=== PATIENT | female | born 1930 | race Caucasian/White ===

== ENCOUNTER → 2016-07-14 | Outpatient (CLI) | payer OTHER, MEDICARE ==
[~2016-07-14] MED LIST: ALBU1AER9 INH; ASPI81TA85 PO; ATOR-54 PO; CAPS0.022 TOP; CARV3.122 PO; CHOL1000 PO; ENOX100I SQ; FOLI1TAB8 PO; FURO40TA3 PO; GABA-112 PO; IRBE1TAB46 PO; LOPELIQ6 PO; METF-382 PO; METFTAB2 PO; PANT40TA PO; PRT/20 PO; PSYL55.43 PO; SPR25 PO; THIA100T11 PO; VNTHFA/IN INH; WARF2TAB PO; [UNRECOGNIZED DRUG - CODE] PO
[2016-07-14 09:58] LABS: PROTHROMBIN TIME (PATIENT) 42.8 SECONDS (9.0-12.0)
[2016-07-14 10:02] LABS: INR 3.8 (0.9-1.1)
== END | disposition home or self-care (01) ==
LOC: C.LABFOXMH 09:21
PROVIDERS: ATTEND Internal Medicine
DX: Z79.01 Long term (current) use of anticoagulants (principal)

== ENCOUNTER → 2016-07-29 | Outpatient (CLI) | payer OTHER, MEDICARE ==
[~2016-07-29] MED LIST changes: -CAPS0.022 TOP; -ENOX100I SQ; -FOLI1TAB8 PO; -METFTAB2 PO; -PANT40TA PO; -THIA100T11 PO; -VNTHFA/IN INH; -[UNRECOGNIZED DRUG - CODE] PO
[2016-07-29 10:12] LABS: INR 2.5 (0.9-1.1)
== END ==
LOC: C.LABFOXMH 09:37
PROVIDERS: ATTEND Internal Medicine
DX: Z79.01 Long term (current) use of anticoagulants (principal)

== ENCOUNTER → 2016-08-11 | Outpatient (CLI) | payer OTHER, MEDICARE ==
[2016-08-11 08:52] LABS: INR 2.1 (0.9-1.1); PROTHROMBIN TIME (PATIENT) 23.6 SECONDS (9.0-12.0)
== END | disposition home or self-care (01) ==
LOC: C.LABFOXMH 08:21
PROVIDERS: ATTEND Internal Medicine
DX: Z51.81 Encounter for therapeutic drug level monitoring (principal); Z79.01 Long term (current) use of anticoagulants

== ENCOUNTER → 2016-08-17 | Outpatient (CLI) | payer OTHER, MEDICARE ==
[2016-08-17 10:17] LABS: ESTIMATED AVERAGE GLUCOSE 151 mg/dl; HA1C FLAG Normal (Normal)
[2016-08-17 10:23] LABS: BLOOD UREA NITROGEN 25 mg/dl (7-18); BUN/CREATININE RATIO 19.2 (10-20); CALCIUM 9.5 mg/dl (8.5-10.1); CARBON DIOXIDE 24 mmol/L (21-32); CHLORIDE 107 mmol/L (98-107); GLUCOSE 132 mg/dl (70-99); POTASSIUM 4.5 mmol/L (3.5-5.1); SODIUM 141 mmol/L (136-145)
== END | disposition home or self-care (01) ==
LOC: C.LABFOXMH 09:31
PROVIDERS: ATTEND Internal Medicine
DX: E11.9 Type 2 diabetes mellitus without complications (principal)

== ENCOUNTER → 2016-09-01 | Outpatient (CLI) | payer OTHER, MEDICARE ==
[2016-09-01 09:02] LABS: INR 2.4 (0.9-1.1); PROTHROMBIN TIME (PATIENT) 26.2 SECONDS (9.0-12.0)
== END | disposition home or self-care (01) ==
LOC: C.LABFOXMH 08:39
PROVIDERS: ATTEND Internal Medicine
DX: Z79.01 Long term (current) use of anticoagulants (principal)

== ENCOUNTER → 2016-09-23 | Outpatient (CLI) | payer OTHER, MEDICARE ==
--- NOTE | 2016-09-23 14:25 | MAMMOGRAPHY REPORT ---
BILATERAL DIGITAL SCREENING MAMMOGRAM WITH CAD: 09/23/2016 CLINICAL HISTORY: Asymptomatic. Personal history of breast cancer. TECHNIQUE: Bilateral CC and MLO views were obtained. Current study was also evaluated with a Comput er Aided Detection (CAD) system. COMPARISON: Comparison is made to exams dated: 09/12/2015 mammogram, 08/20/2014 mammogram, 08/17/2013 job mogram, 08/29/2014 mammogram, 08/10/2012 mammogram, and 01/14/2012 mammogram - [facility] [address] BREAST COMPOSITION: There are scattered areas of fibroglandular density in both breasts. FINDINGS: There is expected architectural distortion, skin irregularity and fat necrosis in the 12:0 0 right breast, in the area of prior surgery. Within an ovoid lucent area within the 12:00 right br east, there is an increasingly prominent 9 mm dense rounded mass. Although this may simply represen t part of evolution of fat necrosis, definitive characterization with spot compression tomosynthesis views and possibly ultrasound is recommended. There are scattered benign coarse calcifications in the right breast, and some in the left breast as well. No other suspicious mass, architectural distortion or cluster of microcalcifications is seen . IMPRESSION: ACR BI-RADS CATEGORY 0: INCOMPLETE EVALUATION: NEED ADDITIONAL IMAGING EVALUATION The increasingly prominent 9 mm dense rounded mass in the 12:00 right breast needs additional evalua tion. The patient will be called to schedule an appointment. Approximately 10% of breast cancers are not detected with mammography. A negative mammographic repor t should not delay biopsy if a clinically suggestive mass is present. Louise Magallanes M.D. ay/:09/23/2016 13:00:08 Attending Technologist: Rachael Chase, [facility] [employer] Supervisor: Fawn Sánchez RT(R)(M), [facility] letter sent: Addl Imaging 0 BI-RADS Code: ACR BI-RADS Category 0: Incomplete Evaluation: Need Additional Imaging Evaluation
== END | disposition home or self-care (01) ==
LOC: C.MAMM 09:46
PROVIDERS: ATTEND Internal Medicine
DX: Z12.31 Encounter for screening mammogram for malignant neoplasm of breast (principal); N63 Unspecified lump in breast

== ENCOUNTER → 2016-09-29 | Outpatient (CLI) | payer OTHER, MEDICARE ==
[2016-09-29 09:33] LABS: INR 2.3 (0.9-1.1); PROTHROMBIN TIME (PATIENT) 25.2 SECONDS (9.0-12.0)
== END | disposition home or self-care (01) ==
LOC: C.LABFOXMH 08:52
PROVIDERS: ATTEND Internal Medicine
DX: Z51.81 Encounter for therapeutic drug level monitoring (principal); Z79.01 Long term (current) use of anticoagulants

== ENCOUNTER → 2016-10-01 | Outpatient (CLI) | payer OTHER, MEDICARE ==
--- NOTE | 2016-10-01 12:48 | MAMMOGRAPHY REPORT ---
UNILATERAL RIGHT DIGITAL DIAGNOSTIC MAMMOGRAM TOMOSYNTHESIS AND TARGETED RIGHT ULTRASOUND: 10/01/2016 CLINICAL HISTORY: Callback from screening mammogram for right breast mass. TECHNIQUE: Breast tomosynthesis in addition to standard 2D mammography was performed. Spot shawn nataly right CC and MLO 2-D and tomosynthesis images were obtained. COMPARISON: Comparison is made to exams dated: 09/23/2016 mammogram, 09/12/2015 mammogram, 08/20/2014 ma mmogram, 08/29/2014 mammogram, 08/17/2013 mammogram, and 08/10/2012 mammogram - [facility] nter. BREAST COMPOSITION: There are scattered areas of fibroglandular density in the right breast. FINDINGS: Spot compression views of the right breast demonstrate an oval 2.4 cm fat density mass at the lumpectomy bed in the right 12:00 breast, consistent with benign fat necrosis. Within the fat density mass is a circumscribed oval gently lobulated 9 mm mass, for which ultrasound was performed. Benign dystrophic calcifications are also noted at the lumpectomy bed. Targeted ultrasound was performed of the right 12:00 breast at the lumpectomy bed. The ultrasound i s somewhat limited of this region due to dense shadowing in the region of the lumpectomy bed. There is a round nearly anechoic mass seen in the right breast at 12:00, which corresponds with the fat d ensity mass mammographically and is consistent with benign fat necrosis. Within the fat density mas s there is a partially visualized isoechoic nodule which measures 4 x 5 mm, only seen in the antirad ial projection. This corresponds with the nodule seen mammographically and is probably benign and l ikely also represents fat necrosis given that it is isoechoic and located within the fat density mas s. IMPRESSION: ACR-BI-RADS CATEGORY 3: PROBABLY BENIGN, TARGETED ULTRASOUND ACR-BI-RADS CATEGORY 3: MA OBABLY BENIGN Isoechoic 9 mm mass within an area of fat necrosis at the lumpectomy bed in the right 12:00 breast. The mass is probably benign and likely also represents fat necrosis. Recommend follow-up diagnosti c tomosynthesis mammograms and possible ultrasound of the right breast in 6 months to reevaluate. The patient has been verbally notified of the results. Approximately 10% of breast cancers are not detected with mammography. A negative mammographic repor t should not delay biopsy if a clinically suggestive mass is present. Tessie Neumann M.D. ah/:10/01/2016 11:43:12 Personnel Coordinator: Rachael GARCÍA(Danuta)(M), [facility] letter sent: Follow Up Recommended 3 BI-RADS Code: ACR-BI-RADS Category 3: Probably Benign Ultrasound BI-RADS: ACR-BI-RADS Category 3: P robably Benign
== END | disposition home or self-care (01) ==
LOC: C.MAMM 10:57
PROVIDERS: ATTEND Internal Medicine
DX: N63 Unspecified lump in breast (principal)

== ENCOUNTER → 2016-10-27 | Outpatient (CLI) | payer OTHER, MEDICARE ==
[2016-10-27 09:39] LABS: INR 1.7 (0.9-1.1); PROTHROMBIN TIME (PATIENT) 18.2 SECONDS (9.0-12.0)
== END | disposition home or self-care (01) ==
LOC: C.LABFOXMH 08:53
PROVIDERS: ATTEND Internal Medicine
DX: Z51.81 Encounter for therapeutic drug level monitoring (principal); Z79.01 Long term (current) use of anticoagulants

== ENCOUNTER → 2016-11-17 | Outpatient (CLI) | payer OTHER, MEDICARE ==
[2016-11-17 10:08] LABS: INR 2.4 (0.9-1.1); PROTHROMBIN TIME (PATIENT) 26.1 SECONDS (9.0-12.0)
== END | disposition home or self-care (01) ==
LOC: C.LABFOXMH 09:43
PROVIDERS: ATTEND Internal Medicine
DX: Z79.01 Long term (current) use of anticoagulants (principal)

== ENCOUNTER → 2016-12-01 | Outpatient (CLI) | payer OTHER, MEDICARE ==
[2016-12-01 11:01] LABS: CALCIUM 9.4 mg/dl (8.5-10.1)
[2016-12-01 11:08] LABS: ESTIMATED AVERAGE GLUCOSE 151 mg/dl; HA1C FLAG Normal (Normal)
[2016-12-01 11:12] LABS: BLOOD UREA NITROGEN 26 mg/dl (7-18); BUN/CREATININE RATIO 27.1 (10-20); CARBON DIOXIDE 25 mmol/L (21-32); CHLORIDE 109 mmol/L (98-107); CHOLESTEROL 123 mg/dl (0-200); CREATININE 0.94 mg/dl (0.60-1.20); GLUCOSE 138 mg/dl (70-99); POTASSIUM 4.3 mmol/L (3.5-5.1); SODIUM 141 mmol/L (136-145); TRIGLYCERIDES 81 mg/dl (0-150); VERY LOW DENSITY LIPOPROT CALC 16 mg/dl
[2016-12-01 11:16] LABS: CHOLESTEROL/HDL RATIO 3.1; HDL CHOLESTEROL 40 mg/dl; LDL CHOLESTEROL CALCULATED 67 mg/dl
== END ==
LOC: C.LABFOXMH 09:55
PROVIDERS: ATTEND Internal Medicine
DX: E11.9 Type 2 diabetes mellitus without complications (principal); E78.00 Pure hypercholesterolemia, unspecified

== ENCOUNTER → 2016-12-08 | Outpatient (CLI) | payer OTHER, MEDICARE ==
[2016-12-08 10:35] LABS: INR 2.2 (0.9-1.1); PROTHROMBIN TIME (PATIENT) 24.8 SECONDS (9.0-12.0)
== END | disposition home or self-care (01) ==
LOC: C.LABFOXMH 09:58
PROVIDERS: ATTEND Internal Medicine
DX: Z79.01 Long term (current) use of anticoagulants (principal)

== ENCOUNTER → 2017-01-05 | Outpatient (CLI) | payer OTHER, MEDICARE ==
[2017-01-05 11:14] LABS: INR 2.2 (0.9-1.1); PROTHROMBIN TIME (PATIENT) 24.6 SECONDS (9.0-12.0)
== END | disposition home or self-care (01) ==
LOC: C.LABFOXMH 09:08
PROVIDERS: ATTEND Internal Medicine
DX: Z51.81 Encounter for therapeutic drug level monitoring (principal); Z79.01 Long term (current) use of anticoagulants

== ENCOUNTER → 2017-02-02 | Outpatient (CLI) | payer OTHER, MEDICARE ==
[2017-02-02 09:52] LABS: INR 2.2 (0.9-1.1); PROTHROMBIN TIME (PATIENT) 24.8 SECONDS (9.0-12.0)
== END | disposition home or self-care (01) ==
LOC: C.LABFOXMH 09:13
PROVIDERS: ATTEND Internal Medicine
DX: Z79.01 Long term (current) use of anticoagulants (principal)

== ENCOUNTER → 2017-03-02 | Outpatient (CLI) | payer OTHER, MEDICARE ==
[2017-03-02 09:38] LABS: INR 2.5 (0.9-1.1); PROTHROMBIN TIME (PATIENT) 28.1 SECONDS (9.0-12.0)
== END | disposition home or self-care (01) ==
LOC: C.LABFOXMH 09:11
PROVIDERS: ATTEND Nurse Practitioner Family
DX: Z79.01 Long term (current) use of anticoagulants (principal); Z51.81 Encounter for therapeutic drug level monitoring

== ENCOUNTER → 2017-03-30 | Outpatient (CLI) | payer OTHER, MEDICARE ==
[2017-03-30 09:55] LABS: INR 2.3 (0.9-1.1); PROTHROMBIN TIME (PATIENT) 25.5 SECONDS (9.0-12.0)
== END | disposition home or self-care (01) ==
LOC: C.LABFOXMH 09:30
PROVIDERS: ATTEND Nurse Practitioner Family
DX: Z79.01 Long term (current) use of anticoagulants (principal)

== ENCOUNTER → 2017-04-09 | Outpatient (CLI) | payer OTHER, MEDICARE ==
--- NOTE | 2017-04-09 14:55 | MAMMOGRAPHY REPORT ---
UNILATERAL RIGHT DIGITAL DIAGNOSTIC MAMMOGRAM TOMOSYNTHESIS WITH CAD: 04/09/2017 CLINICAL HISTORY: 6 Month Follow-up Right. TECHNIQUE: Breast tomosynthesis in addition to standard 2D mammography was performed. Current study was also evaluated with a Computer Aided Detection (CAD) system. Right CC and MLO 2-D and tomosynthe sis images were obtained. COMPARISON: Comparison is made to exams dated: 10/01/2016 mammogram, 10/01/2016 ultrasound, 09/23/2016 mammogram, 09/12/2015 mammogram, 08/20/2014 mammogram, and 08/17/2013 mammogram - [facility] ter. BREAST COMPOSITION: There are scattered areas of fibroglandular density in the right breast. FINDINGS: Again noted are post surgical changes in the right 12:00 breast from prior lumpectomy. A circumscribed oval 2.3 cm mass is seen at the lumpectomy bed, consistent with benign fat necrosis. W ithin the fat density mass is a round circumscribed 9 mm mass, which is stable compared to the prior September 2016 exam and given that it is located within the fat density mass, it is prior benign and like ly represents fat necrosis. Coarse benign dystrophic calcifications are again noted at the lumpectom y bed. The remainder of the right breast is stable compared to prior exams, without suspicious coreen s, calcifications, or areas of architectural distortion noted. Diffuse right breast skin thickening is stable. IMPRESSION: ACR-BI-RADS CATEGORY 3: PROBABLY BENIGN Circumscribed 9 mm mass within an area of fat necrosis at the lumpectomy bed in the right 12:00 breas t is stable and is probably benign and likely represents fat necrosis. Recommend bilateral diagnosti c tomosynthesis mammograms in 6 months, to reevaluate the right breast mass and for routine mammograp hy of the left breast. The patient has been verbally notified of the results. Approximately 10% of breast cancers are not detected with mammography. A negative mammographic report should not delay biopsy if a clinically suggestive mass is present. Tessie Neumann M.D. /:04/09/2017 11:49:30 Bias Cutting Machine Operator Vertical: Fawn GARCÍA(Danuta)(Juan), [facility] letter sent: Follow Up Recommended 3 BI-RADS Code: ACR-BI-RADS Category 3: Probably Benign
== END | disposition home or self-care (01) ==
LOC: C.MAMM 10:54
PROVIDERS: ATTEND Internal Medicine
DX: N63 Unspecified lump in breast (principal); Z85.3 Personal history of malignant neoplasm of breast; Z98.890 Other specified postprocedural states

== ENCOUNTER → 2017-04-15 | Outpatient (CLI) | payer OTHER, MEDICARE | END | disposition home or self-care (01) | LOC: C.LABSPEC 12:49 | PROVIDERS: ATTEND Internal Medicine | DX: R35.0 Frequency of micturition (principal) ==

== ENCOUNTER → 2017-04-27 | Outpatient (CLI) | payer OTHER, MEDICARE ==
[2017-04-27 11:00] LABS: INR 2.5 (0.9-1.1); PROTHROMBIN TIME (PATIENT) 27.4 SECONDS (9.0-12.0)
== END | disposition home or self-care (01) ==
LOC: C.LABFOXMH 11:01
PROVIDERS: ATTEND Internal Medicine
DX: Z51.81 Encounter for therapeutic drug level monitoring (principal); Z79.01 Long term (current) use of anticoagulants

== ENCOUNTER → 2017-05-25 | Outpatient (CLI) | payer OTHER, MEDICARE ==
[2017-05-25 09:53] LABS: ESTIMATED AVERAGE GLUCOSE 177 mg/dl; HA1C FLAG Normal (Normal)
[2017-05-25 09:54] LABS: INR 2.8 (0.9-1.1); PROTHROMBIN TIME (PATIENT) 30.9 SECONDS (9.0-12.0)
[2017-05-25 10:11] LABS: ALT/SGPT 38 U/L (12-78); AST/SGOT 22 U/L (15-37); BLOOD UREA NITROGEN 33 mg/dl (7-18); BUN/CREATININE RATIO 30.8 (10-20); CALCIUM 9.2 mg/dl (8.5-10.1); CARBON DIOXIDE 22 mmol/L (21-32); CHLORIDE 107 mmol/L (98-107); CHOLESTEROL 108 mg/dl (0-200); CREATININE 1.06 mg/dl (0.60-1.20); GLUCOSE 174 mg/dl (70-99); POTASSIUM 4.3 mmol/L (3.5-5.1); SODIUM 141 mmol/L (136-145); TRIGLYCERIDES 80 mg/dl (0-150); VERY LOW DENSITY LIPOPROT CALC 16 mg/dl
[2017-05-25 10:17] LABS: ALB/GLOB RATIO 1.3 (0.9-2); ALKALINE PHOSPHATASE 66 U/L (45-117); CHOLESTEROL/HDL RATIO 2.8; HDL CHOLESTEROL 39 mg/dl; LDL CHOLESTEROL CALCULATED 53 mg/dl
== END | disposition home or self-care (01) ==
LOC: C.LABFOXMH 09:02
PROVIDERS: ATTEND Internal Medicine
DX: Z79.01 Long term (current) use of anticoagulants (principal); E11.9 Type 2 diabetes mellitus without complications; E78.00 Pure hypercholesterolemia, unspecified

== ENCOUNTER → 2017-06-09 | Outpatient (CLI) | payer OTHER, MEDICARE ==
--- NOTE | 2017-06-09 13:49 | DIAGNOSTIC IMAGING REPORT ---
HEAD WITHOUT CONTRAST (CT) CLINICAL HISTORY: 86 years-old Female presenting with LOSS OF TASTE AND SMELL. TECHNIQUE: Multidetector CT imaging of the head was performed without the use of intravenous contrast. IV contrast: None. A dose lowering technique was used consistent with the principles of ALARA (as low as reasonably achievable). COMPARISON: 02/23/2016. CT DOSE (mGy.cm): The estimated cumulative dose is 776.86 mGycm. FINDINGS: Produce Department Supervisor topogram: Unremarkable. Proportional ventricular and sulcal prominence, likely age-related parenchymal volume loss. Periventricular and subcortical white matter hypoattenuation, nonspecific but likely indicative of chronic small vessel ischemic change. No mass effect or midline shift. No hemorrhage or acute territorial infarct. No extra-axial fluid collection. Paranasal sinuses and mastoid air cells clear. Calvarium intact. Bilateral walker river lenses are absent. IMPRESSION: 1. Chronic small vessel ischemic change. No acute intracranial abnormality. Electronically signed by: Mauricio Manning M.D. 06/09/2017 1:47 PM Dictated Date/Time: 06/09/2017 1:45 PM
== END | disposition home or self-care (01) ==
LOC: C.CTS 12:57
PROVIDERS: ATTEND Internal Medicine Hospice and Palliative Medicine
DX: R43.0 Anosmia (principal); R43.2 Parageusia; I67.82 Cerebral ischemia

== ENCOUNTER → 2017-06-22 | Outpatient (CLI) | payer OTHER, MEDICARE ==
[2017-06-22 08:35] LABS: INR 2.8 (0.9-1.1); PROTHROMBIN TIME (PATIENT) 28.8 SECONDS (9.0-12.0)
== END | disposition home or self-care (01) ==
LOC: C.LABFOXMH 07:49
PROVIDERS: ATTEND Internal Medicine
DX: Z79.01 Long term (current) use of anticoagulants (principal); Z51.81 Encounter for therapeutic drug level monitoring

== ENCOUNTER → 2017-07-01 | Outpatient (CLI) | payer OTHER, MEDICARE ==
[~2017-07-01] MED LIST changes: +CAPS0.022 TOP; +ENOX100I SQ; +FOLI1TAB8 PO; +METFTAB2 PO; +PANT40TA PO; +THIA100T11 PO; +VNTHFA/IN INH; +[UNRECOGNIZED DRUG - CODE] PO
--- NOTE | 2017-07-01 14:56 | DIAGNOSTIC IMAGING REPORT ---
L HIP UNILATERAL 2 VIEWS CLINICAL HISTORY: Left hip pain. Trauma. COMPARISON: None. DISCUSSION: There are mild osteoarthritic changes. No acute fractures are visualized. There are no dislocations. Vascular calcifications are visualized. There are scattered surgical clips within the thigh and right inguinal region. IMPRESSION: 1. Osteoarthritic change 2. No acute fractures Electronically signed by: Gerard Schumacher M.D. 07/01/2017 2:54 PM Dictated Date/Time: 07/01/2017 2:54 PM
== END | disposition home or self-care (01) ==
LOC: C.RAD 14:24
PROVIDERS: ATTEND Internal Medicine Hospice and Palliative Medicine
DX: M16.11 Unilateral primary osteoarthritis, right hip (principal); W19.XXXA Unspecified fall, initial encounter

== ENCOUNTER 2017-07-15 17:13 | Observation (INO) | payer OTHER, MEDICARE ==
[~2017-07-15] VITALS: Ht 167.6 cm; Wt 87.0 kg
[~2017-07-15 17:13] MED LIST changes: -CAPS0.022 TOP; -ENOX100I SQ; -FOLI1TAB8 PO; -METFTAB2 PO; -PANT40TA PO; -THIA100T11 PO; -VNTHFA/IN INH; -[UNRECOGNIZED DRUG - CODE] PO
--- NOTE | 2017-07-15 19:04 | EMERGENCY ROOM VISIT NOTE ---
History Report prepared by Lupe: Jose Raul Velazquez Under the Supervision of: Dr. Jovanni Culp M.D. First contact with patient: 18:48 Chief Complaint: CONFUSION Stated Complaint: CHANGE IN MENTAL STATUS Nursing Triage Summary: Increased confusion over last few days, from [facility]. Family states patient had blood work done and Cr level is elevated. Family brought patient to ER but has a copy of info from [facility] with them History of Present Illness The patient is a 87 year old female who presents to the Emergency Room with complaints of worsening confusion that began a few days ago. Patient has associated symptoms of unclear vision, weakness, and left hip pain. Patient states her left hip pain is exacerbated with pressure. She is present at the ER with her daughter. Daughter states that the patient tripped and fell a couple weeks ago. Patient adds that she has never seen an orthopedic surgeon. She states she is resident at [facility]. Daughter states that the patient has not been consistently taking her medications recently. 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 She states she saw her PCP, Dr. West, recently for her unclear vision and was referred to the ED for her symptoms. Source of History: patient, family (Daughter) Onset: Few days ago Position: other (Confusion) Timing: worsening Associated Symptoms: + weakness Note: Patient has unclear vision and hip pain. Review of Systems See HPI for pertinent positives & negatives. A total of 10 systems reviewed and were otherwise negative. Past Medical & Surgical Medical Problems: (1) Altered mental status (2) CHF (congestive heart failure) (3) Diabetes (4) Ischemic colitis (5) Near syncope Family History No pertinent family medical history. Social History Smoking Status: Never Smoker Drug Use: none Marital Status: Housing Status: lives alone, assisted living Occupation Status: retired Current/Historical Medications Scheduled Aspirin (Aspirin Dr), 81 MG PO DAILY Atorvastatin (Lipitor), 20 MG PO DAILY Carvedilol (Coreg), 3.125 MG PO BID Cholecalciferol (Vitamin D3), 1,000 INTER.UNIT PO DAILY Cholecalciferol (Vitamin D3), 1 TAB PO DAILY Enoxaparin (Lovenox), 1 ML SQ DAILY Folic Acid (Folvite), 1 MG PO DAILY Furosemide (Lasix), 40 MG PO DAILY Irbesartan (Irbesartan), 75 MG PO DAILY Metformin Ext Rel (Glucophage Ext Rel), 750 MG PO QPM Pantoprazole (Protonix), 40 MG PO DAILY Psyllium (Reguloid), 1 TBS PO QAM Spironolactone (Spironolactone), 25 MG PO DAILY Thiamine Hcl (Vitamin B-1), 100 MG PO DAILY Warfarin Sodium (Coumadin), 1 TAB PO DAILY Scheduled PRN Albuterol Hfa (Ventolin Hfa), 2 PUFFS INH UD PRN for cough/wheeze Capsaicin (Capsaicin), 1 APPLN TOP BID PRN for neuropathy Allergies Coded Allergies: Penicillins (Verified Allergy, Intermediate, Hives - tolerates imipenem, 06/25/14) Fluoxetine (Verified Allergy, Unknown, ECZEMA, 06/25/14) Lisinopril (Verified Adverse Reaction, Intermediate, COUGH, 06/25/14) Adhesives (Verified Adverse Reaction, Mild, LOCAL RASH, 06/25/14) Amlodipine (Verified Adverse Reaction, Mild, LOWER EXTREMITY EDEMA, ) Physical Exam Vital Signs Date Time Temp Pulse Resp B/P (MAP) Pulse Ox O2 Delivery O2 Flow Rate FiO2 07/15/17 23:19 71 20 150/94 93 Room Air 07/15/17 21:57 75 07/15/17 21:32 70 18 159/92 95 Room Air 07/15/17 20:09 72 18 146/79 95 Room Air 07/15/17 19:19 99 Room Air 07/15/17 19:11 99 Room Air 07/15/17 19:06 71 07/15/17 17:39 36.4 87 16 151/75 95 Room Air Physical Exam GENERAL: Patient is a healthy-appearing well-nourished [] HEAD: Normocephalic atraumatic EYES: Ocular movements intact pupils equal and react to light OROPHARYNX mucous membranes are moist no exudates present no erythema or edema present NECK: Supple no nuchal rigidity CHEST: Good equal expansion LUNGS: Clear and equal to auscultation CARDIAC: Normal S1 and S2 ABDOMEN: Soft nontender no guarding BACK: No CVA tenderness EXTREMITIES: No pain upon palpation normal muscle strength in all groups no clubbing cyanosis or edema NEURO: Patient is not oriented to person, place, or time. Patient is following commands and answering questions appropriately. Cranial Nerves 2-12 grossly intact Medical Decision & Procedures ER Provider Diagnostic Interpretation: Radiology results as stated below per my review and radiologist interpretation: L FEMUR 2 VIEWS ROUTINE CLINICAL HISTORY: Left leg pain status post trauma COMPARISON: None. DISCUSSION: Osteoarthritic changes are present within the left hip. There are vascular calcifications present. There is chondrocalcinosis the level the knee. No acute fractures or dislocations are visualized. IMPRESSION: No acute fractures or dislocations identified. Electronically signed by: Gerard Schumacher M.D. 07/15/2017 9:[address] HEAD WITHOUT CONTRAST (CT) CLINICAL HISTORY: Acute change in mental status COMPARISON STUDY: 06/09/2017 TECHNIQUE: Axial CT of the brain is performed from the vertex to the skull base. IV contrast was not administered for this examination. A dose lowering technique was utilized adhering to the principles of ALARA. CT DOSE: 614.27 mGy.cm FINDINGS: No intra or extra-axial mass lesions are visualized. There is no CT evidence of acute cortical infarction. There is no evidence of midline shift. There is no acute hemorrhage. No calvarial fractures are visualized. There are patchy white matter hypodensities likely on a small vessel basis. There is mild particular prominence, unchanged the prior study. This is felt to be secondary to volume loss. There is no evidence of acute sinusitis IMPRESSION: No acute intracranial findings Electronically signed by: Gerard Schumacher M.D. 07/15/2017 8:18 PM PELVIS 1 OR 2 VIEW ROUTINE CLINICAL HISTORY: Left hip pain status post trauma COMPARISON STUDY: 03/21/2014 FINDINGS: There are osteoarthritic changes present within both hips. There are no acute fractures or dislocations. There are vascular calcifications present within the iliac arteries. There is no SI joint diastases. There is no symphysis diastases. IMPRESSION: Osteoarthritic changes. No acute fractures or dislocations. Electronically signed by: Gerard Schumacher M.D. 07/15/2017 9:36 PM CHEST ONE VIEW PORTABLE CLINICAL HISTORY: Trauma. Left hip pain COMPARISON STUDY: 02/23/2016 FINDINGS: There are postsurgical changes of a midline sternotomy. The heart remains enlarged. 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 There is no failure. There is no focal pulmonary consolidation.[ IMPRESSION: Cardiomegaly. No acute findings. Electronically signed by: Gerard Schumacher M.D. 07/15/2017 9:32 PM Laboratory Results Test 07/15/17 19:05 07/15/17 19:20 07/15/17 22:50 Prothrombin Time 11.8 SECONDS (9.0-12.0) Prothromb Time International Ratio 1.1 (0.9-1.1) Total Bilirubin 0.7 mg/dl (0.2-1) Direct Bilirubin 0.2 mg/dl (0-0.2) Aspartate Amino Transf (AST/SGOT) 18 U/L (15-37) Alanine Aminotransferase (ALT/SGPT) 33 U/L (12-78) Alkaline Phosphatase 78 U/L (45-117) Total Creatine Kinase 52 U/L (26-192) Creatine Kinase MB 0.9 ng/ml (0.5-3.6) Creatine Kinase MB Ratio 1.7 (0-3.0) Troponin I 0.016 ng/ml (0-0.045) Total Protein 7.9 gm/dl (6.4-8.2) Albumin 4.0 gm/dl (3.4-5.0) Thyroid Stimulating Hormone (TSH) 2.680 uIu/ml (0.300-4.500) Influenza Type A (RT-PCR) Neg for Influ A (NEG) Influenza Type A Antigen Neg for Influ A (NEG) Influenza Type B Antigen Neg for Influ B (NEG) Influenza Type B (RT-PCR) Neg for Influ B (NEG) Urine Color YELLOW Urine Appearance CLEAR (CLEAR) Urine pH 5.0 (4.5-7.5) Urine Specific [place] 1.021 (1.000-1.030) Urine Protein NEG (NEG) Urine Glucose (UA) NEG (NEG) Urine Ketones NEG (NEG) Urine Occult Blood NEG (NEG) Urine Nitrite NEG (NEG) Urine Bilirubin NEG (NEG) Urine Urobilinogen NEG (NEG) Urine Leukocyte Esterase NEG (NEG) Labs reviewed by ED physician. Medications Administered Medications (Trade) Dose Ordered Sig/Kermit Route Start Time Stop Time Status Last Admin Dose Admin Albuterol/ Ipratropium (Duoneb) 3 ml NOW STAT INH 07/15/17 19:31 07/15/17 19:32 DC 07/15/17 20:26 3 ML Sodium Chloride 500 ml @ 999 mls/hr Q31M STAT IV 07/15/17 19:53 1/4/18 20:23 DC 07/15/17 20:08 999 MLS/HR Ceftriaxone Sodium (Rocephin Inj) 1 gm NOW STAT IV 07/15/17 22:58 07/15/17 22:59 DC 07/15/17 23:19 1 GM Sodium Chloride 1,000 ml @ 60 mls/hr [id number] IV 07/16/17 00:15 07/16/17 11:47 DC 07/16/17 05:08 60 MLS/HR ECG Indication: weakness Rate (beats per minute): 73 Rhythm: other (Paced rhythm) Findings: no acute ischemic change, no ectopy ED Course 1854: Past medical records reviewed. The patient was evaluated in room A3. A complete history and physical examination was performed. 193: Duoneb 3ml INH 1952: Sodium Chloride 500 ml @ 999 mls/hr IV 2257: Rocephin Inj 1gm IV 0010: Upon reexamination the patient will be further evaluated. I discussed results and treatment plan with the patient. She verbalizes agreement and understanding. I spoke with Dr. Lechuga from the [facility]. The patient will be evaluated for further management. Medical Decision Differential diagnosis: Etiologies such as metabolic, infection, hypo/hyperglycemia, electrolyte abnormalities, cardiac sources, intracerebral event, toxicologic, neurologic, as well as others were entertained. This is an 87-year-old female who presents emergency department due to confusion. Upon arrival to the emergency department the patient is unable to tell where she is or who she is or what the date is. She had a CT the head. The patient is slightly dehydrated. Urine appears to be clean. She was given breathing treatments in the emergency department. I did discuss the case with the hospitalist service who agreed to admit the patient. Patient was in agreement with the treatment plan. Medication Reconcilliation Current Medication List: was personally reviewed by me Blood Pressure Screening Patient's blood pressure: Elevated blood pressure Blood pressure disposition: Referred to PCP Consults Time Called: 14 Consulting Physician: Dr. Lechuga - Hospitalist Returned Call: [phone] I discussed the patient's case with Dr. Lechuga, he has agreed to evaluate the patient for further management and care. Impression Primary Impression: Altered mental status Additional Impression: Dehydration Scribe Attestation The scribe's documentation has been prepared under my direction and personally reviewed by me in its entirety. I confirm that the note above accurately reflects all work, treatment, procedures, and medical decision making performed by me. Departure Information Dispostion Being Evaluated By Hospitalist Prescriptions Enoxaparin (LOVENOX) 100 Mg/Ml Inj 1 ML SQ DAILY for 5 Days, #5 ML Prov: Felicitas Damon M.D. 07/16/17 Referrals Ector West M.D. (PCP) Forms HOME CARE DOCUMENTATION FORM, IMPORTANT VISIT INFORMATION, WORK / SCHOOL INSTRUCTIONS Patient Instructions My [facility] Problem Qualifiers Primary Impression: Altered mental status Altered mental status type: unspecified Qualified Codes: R41.82 - Altered mental status, unspecified
[2017-07-15] MEDS ORDERED: ALBUT/IPRATROP 3MG/0.5MG NEB 3 ML VIAL INH STA (19:31)
[2017-07-15 19:33] LABS: BASO % 0.3 %; BASO ABS # 0.03 K/uL (0-0.2); EOS % 2.2 %; EOS ABS # 0.26 K/uL (0-0.5); HEMATOCRIT 45.3 % (37-47); IG# 0.03 K/uL (0.00-0.02); LYMPH ABS # 2.55 K/uL (1.2-3.4); MEAN CELL VOLUME 97.4 fL (80-100); MEAN CORPUSCULAR HEMOGLOBIN 32.3 pg (25-34); MEAN CORPUSCULAR HGB CONC 33.1 g/dl (32-36); MEAN PLATELET VOLUME 9.7 fL (7.4-10.4); MONO % 10.8 %; MONO ABS # 1.25 K/uL (0.11-0.59); NEUT % 64.4 %; NEUT ABS # 7.46 K/uL (1.4-6.5); PLATELET COUNT 262 K/uL (130-400); RED CELL DISTRIBUTION WIDTH CV 13.5 % (11.5-14.5); RED CELL DISTRIBUTION WIDTH SD 47.2 fL (36.4-46.3); WHITE BLOOD COUNT 11.58 K/uL (4.8-10.8)
[2017-07-15 19:49] LABS: INR 1.1 (0.9-1.1)
[2017-07-15 19:50] LABS: CALCIUM 9.9 mg/dl (8.5-10.1); CREATININE 1.46 mg/dl (0.60-1.20); POTASSIUM 4.1 mmol/L (3.5-5.1)
[2017-07-15] MEDS ORDERED: SODIUM CHLORIDE 0.9% 500ML 500 ML IV STA (19:53)
[2017-07-15 20:01] LABS: CKMB 0.9 ng/ml (0.5-3.6); TOTAL PROTEIN 7.9 gm/dl (6.4-8.2)
[2017-07-15 20:19] LABS: INFLUENZA A PCR Neg for Influ A (NEG); INFLUENZA B ANTIGEN Neg for Influ B (NEG); INFLUENZA B PCR Neg for Influ B (NEG)
--- NOTE | 2017-07-15 20:20 | DIAGNOSTIC IMAGING REPORT ---
CT HEAD WITHOUT CONTRAST (CT) CLINICAL HISTORY: Acute change in mental status COMPARISON STUDY: 06/09/2017 TECHNIQUE: Axial CT of the brain is performed from the vertex to the skull base. IV contrast was not administered for this examination. A dose lowering technique was utilized adhering to the principles of ALARA. CT DOSE: 614.27 mGy.cm FINDINGS: No intra or extra-axial mass lesions are visualized. There is no CT evidence of acute cortical infarction. There is no evidence of midline shift. There is no acute hemorrhage. No calvarial fractures are visualized. There are patchy white matter hypodensities likely on a small vessel basis. There is mild particular prominence, unchanged the prior study. This is felt to be secondary to volume loss. There is no evidence of acute sinusitis IMPRESSION: No acute intracranial findings Electronically signed by: Gerard Schumacher M.D. 07/15/2017 8:18 PM Dictated Date/Time: 07/15/2017 8:18 PM
--- NOTE | 2017-07-15 21:34 | DIAGNOSTIC IMAGING REPORT ---
CHEST ONE VIEW PORTABLE CLINICAL HISTORY: Trauma. Left hip pain COMPARISON STUDY: 02/23/2016 FINDINGS: There are postsurgical changes of a midline sternotomy. The heart remains enlarged. 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 There is no failure. There is no focal pulmonary consolidation.[ IMPRESSION: Cardiomegaly. No acute findings. Electronically signed by: Gerard Schumacher M.D. 07/15/2017 9:32 PM Dictated Date/Time: 07/15/2017 9:32 PM
--- NOTE | 2017-07-15 21:37 | DIAGNOSTIC IMAGING REPORT ---
PELVIS 1 OR 2 VIEW ROUTINE CLINICAL HISTORY: Left hip pain status post trauma COMPARISON STUDY: 03/21/2014 FINDINGS: There are osteoarthritic changes present within both hips. There are no acute fractures or dislocations. There are vascular calcifications present within the iliac arteries. There is no SI joint diastases. There is no symphysis diastases. IMPRESSION: Osteoarthritic changes. No acute fractures or dislocations. Electronically signed by: Gerard Schumacher M.D. 07/15/2017 9:36 PM Dictated Date/Time: 07/15/2017 9:35 PM
--- NOTE | 2017-07-15 21:39 | DIAGNOSTIC IMAGING REPORT ---
L FEMUR 2 VIEWS ROUTINE CLINICAL HISTORY: Left leg pain status post trauma COMPARISON: None. DISCUSSION: Osteoarthritic changes are present within the left hip. There are vascular calcifications present. There is chondrocalcinosis the level the knee. No acute fractures or dislocations are visualized. IMPRESSION: No acute fractures or dislocations identified. Electronically signed by: Gerard Schumacher M.D. 07/15/2017 9:38 PM Dictated Date/Time: 07/15/2017 9:37 PM
[2017-07-15] MEDS ORDERED: CEFTRIAXONE SOD INJ 1 GM ADDVIAL IV STA (22:58)
[2017-07-15] MEDS ORDERED: THIA100T11 PO (23:35)
[2017-07-15] MEDS ORDERED: CHOL1000 PO (23:35)
[2017-07-15] MEDS ORDERED: FOLI1TAB8 PO (23:35)
[2017-07-15] MEDS ORDERED: WARF2TAB PO (23:37)
[2017-07-15] MEDS ORDERED: CAPS0.022 TOP (23:37)
[2017-07-15] MEDS ORDERED: PANT40TA PO (23:40)
[2017-07-15] MEDS ORDERED: METFTAB2 PO (23:40)
[2017-07-15] MEDS ORDERED: [UNRECOGNIZED DRUG - CODE] PO (23:40)
[2017-07-15] MEDS ORDERED: VNTHFA/IN INH (23:41)
[2017-07-16] VITALS (7 sets, daily range): BP systolic 151–167; BP diastolic 75–83; PULSE 70–87; TEMP 36.5–36.7; O2SAT 94–97; Ht 167.6 cm; Wt 87.0 kg
[2017-07-16] MEDS ORDERED: ACETAMINOPHEN 325 MG TAB PO PRN (00:15)
[2017-07-16] MEDS ORDERED: SODIUM CHLORIDE 0.9% 1000ML 1,000 ML IV SCH (00:15)
[2017-07-16] MEDS ORDERED: MAGNESIUM HYDROXIDE SUSP 30 ML UDC PO PRN (00:15)
[2017-07-16] MEDS ORDERED: ONDANSETRON INJ 2 MG/ML 2 ML VIAL IV PRN (00:15)
[2017-07-16] MEDS ORDERED: ALBUTEROL HFA 8 GM INHALER INH PRN (00:15)
[2017-07-16] MEDS ORDERED: POLYETHYLENE (MIRALAX) 17 GM PACK PO PRN (00:15)
[2017-07-16] MEDS ORDERED: IV FLUIDS COMPLETED PRN (01:00)
--- NOTE | 2017-07-16 01:14 | History and Physical ---
History & Physical Date & Time of Service: Jul 16, 2017 at 00:47 Chief Complaint: Change In Mental Status Primary Care Physician: Ector West M.D. History of Present Illness Patient is an 87 year old female [facility] resident with a past medical history of CAD, HTN, Afib, HLD, CHF, and DM that presents with a 2 week history of worsening confusion. The patient is currently a mid-level patient at [facility] in independent living and suffered a fall 2 weeks ago. She was shortly placed with assisted nursing due to left sided hip pain and then re-entered independent living. The patient has since become progressively more confused and her daughter states that she may not have taken any of her medications for approximately four days. The patient was becoming progressively more confused today and incontinent to urine and her daughter says she is significantly more confused than her baseline at which she is normally alert and oriented. The patient is alert to person, place (hospital), and knows it was recently her birthday but states the year is 1918. Her speech is comprehensible but is having confusion with answering questions. Past Medical/Surgical History Medical Problems: (1) CHF (congestive heart failure) Status: Chronic (2) Diabetes Status: Chronic (3) Ischemic colitis Status: Resolved Social History Smoking Status: Never Smoker Drug Use: none Marital Status: Housing status: long-term Occupational Status: retired Immunizations History of Influenza Vaccine: Yes Influenza Vaccine Date: May 24, 2011 History of Tetanus Vaccine?: yes in last 5-6 years she stated History of Pneumococcal: yes pt had in past several yrs ago History of Hepatitis B Vaccine: Unknown Multi-Drug Resistant Organisms History of MDRO: No Allergies Coded Allergies: Penicillins (Verified Allergy, Intermediate, Hives - tolerates imipenem, 06/25/14) Fluoxetine (Verified Allergy, Unknown, ECZEMA, 06/25/14) Lisinopril (Verified Adverse Reaction, Intermediate, COUGH, 06/25/14) Adhesives (Verified Adverse Reaction, Mild, LOCAL RASH, 06/25/14) Amlodipine (Verified Adverse Reaction, Mild, LOWER EXTREMITY EDEMA, ) Home Medications Scheduled Aspirin (Aspirin Dr), 81 MG PO DAILY Atorvastatin (Lipitor), 20 MG PO DAILY Carvedilol (Coreg), 3.125 MG PO BID Cholecalciferol (Vitamin D3), 1,000 INTER.UNIT PO DAILY Cholecalciferol (Vitamin D3), 1 TAB PO DAILY Folic Acid (Folvite), 1 MG PO DAILY Furosemide (Lasix), 40 MG PO DAILY Irbesartan (Irbesartan), 75 MG PO DAILY Metformin Ext Rel (Glucophage Ext Rel), 750 MG PO QPM Pantoprazole (Protonix), 40 MG PO DAILY Psyllium (Reguloid), 1 TBS PO QAM Spironolactone (Spironolactone), 25 MG PO DAILY Thiamine Hcl (Vitamin B-1), 100 MG PO DAILY Warfarin Sodium (Coumadin), 1 TAB PO DAILY Scheduled PRN Albuterol Hfa (Ventolin Hfa), 2 PUFFS INH UD PRN for cough/wheeze Capsaicin (Capsaicin), 1 APPLN TOP BID PRN for neuropathy Review of Systems Constitutional: No fever, No chills, No fatigue Respiratory: No cough, No shortness of breath Cardiovascular: No chest pain, No palpitations Abdomen: + diarrhea (loose bowel movements at baseline), No pain, No nausea, No vomiting, No constipation Musculoskeletal: + joint pain (left hip pain from the fall) Genitourinary - Female: No dysuria, No urinary frequency Neurologic: + memory loss, + weakness, No numbness/tingling Endocrine: + fatigue Physical Exam Vital Signs Date Time Temp Pulse Resp B/P (MAP) Pulse Ox O2 Delivery O2 Flow Rate FiO2 07/15/17 23:19 71 20 150/94 93 Room Air 07/15/17 21:57 75 07/15/17 21:32 70 18 159/92 95 Room Air 07/15/17 20:09 72 18 146/79 95 Room Air 07/15/17 19:19 99 Room Air 07/15/17 19:11 99 Room Air 07/15/17 19:06 71 07/15/17 17:39 36.4 87 16 151/75 95 Room Air General Appearance: WD/WN, no apparent distress Head: normocephalic, atraumatic Eyes: normal inspection, sclerae normal Neck: supple, no JVD, no carotid bruits Respiratory/Chest: chest non-tender, lungs clear, normal breath sounds Cardiovascular: regular rate, rhythm, no edema, no gallop Abdomen/GI: normal bowel sounds, non tender, soft Extremities/Musculoskelatal: normal inspection, no calf tenderness, + pedal edema (Daughter states this is her baseline swelling), + swelling Neurologic/Psych: alert, normal mood/affect, + disoriented Diagnostics Laboratory Results Results Past 24 Hours Test 07/15/17 19:05 07/15/17 19:20 07/15/17 22:50 Range/Units White Blood Count 11.58 4.8-10.8 K/uL Red Blood Count 4.65 4.2-5.4 M/uL Hemoglobin 15.0 12.0-16.0 g/dL Hematocrit 45.3 37-47 % Mean Corpuscular Volume 97.4 80-100 fL Mean Corpuscular Hemoglobin 32.3 25-34 pg Mean Corpuscular Hemoglobin Concent 33.1 32-36 g/dl Platelet Count 262 130-400 K/uL Mean Platelet Volume 9.7 7.4-10.4 fL Neutrophils (%) (Auto) 64.4 % Lymphocytes (%) (Auto) 22.0 % Monocytes (%) (Auto) 10.8 % Eosinophils (%) (Auto) 2.2 % Basophils (%) (Auto) 0.3 % Neutrophils # (Auto) 7.46 1.4-6.5 K/uL Lymphocytes # (Auto) 2.55 1.2-3.4 K/uL Monocytes # (Auto) 1.25 0.11-0.59 K/uL Eosinophils # (Auto) 0.26 0-0.5 K/uL Basophils # (Auto) 0.03 0-0.2 K/uL RDW Standard Deviation 47.2 36.4-46.3 fL RDW Coefficient of Variation 13.5 11.5-14.5 % Immature Granulocyte % (Auto) 0.3 % Immature Granulocyte # (Auto) 0.03 0.00-0.02 K/uL Prothrombin Time 11.8 9.0-12.0 SECONDS Prothromb Time International Ratio 1.1 0.9-1.1 Sodium Level 139 136-145 mmol/L Potassium Level 4.1 3.5-5.1 mmol/L Chloride Level 106 98-107 mmol/L Carbon Dioxide Level 25 21-32 mmol/L Anion Gap 8.0 3-11 mmol/L Blood Urea Nitrogen 24 7-18 mg/dl Creatinine 1.46 0.60-1.20 mg/dl Est Creatinine Clear Calc Drug Dose 30.3 ml/min Estimated GFR () 36.9 Estimated GFR (Non- 31.8 BUN/Creatinine Ratio 16.2 10-20 Random Glucose 179 70-99 mg/dl Calcium Level 9.9 8.5-10.1 mg/dl Total Bilirubin 0.7 0.2-1 mg/dl Direct Bilirubin 0.2 0-0.2 mg/dl Aspartate Amino Transf (AST/SGOT) 18 15-37 U/L Alanine Aminotransferase (ALT/SGPT) 33 12-78 U/L Alkaline Phosphatase 78 45-117 U/L Total Creatine Kinase 52 26-192 U/L Creatine Kinase MB 0.9 0.5-3.6 ng/ml Creatine Kinase MB Ratio 1.7 0-3.0 Troponin I 0.016 0-0.045 ng/ml Total Protein 7.9 6.4-8.2 gm/dl Albumin 4.0 3.4-5.0 gm/dl Thyroid Stimulating Hormone (TSH) 2.680 0.300-4.500 uIu/ml Influenza Type A (RT-PCR) Neg for Influ A NEG Influenza Type A Antigen Neg for Influ A NEG Influenza Type B Antigen Neg for Influ B NEG Influenza Type B (RT-PCR) Neg for Influ B NEG Urine Color YELLOW Urine Appearance CLEAR CLEAR Urine pH 5.0 4.5-7.5 Urine Specific [place] 1.021 1.000-1.030 Urine Protein NEG NEG Urine Glucose (UA) NEG NEG Urine Ketones NEG NEG Urine Occult Blood NEG NEG Urine Nitrite NEG NEG Urine Bilirubin NEG NEG Urine Urobilinogen NEG NEG Urine Leukocyte Esterase NEG NEG Impression Assessment and Plan Patient is an 87 year old female [facility] resident with a past medical history of CAD, HTN, Afib, HLD, CHF, and DM that presents with a 2 week history of worsening confusion. 1) Altered mental status - At this time believed to be secondary to dehydration and medication error - BUN/ Cr of 24/1.46 - Rehydrate with Normal Saline at 60 ml/hr - Resume home medications except Lasix and Spironolactone --> No home medications at this time identified or held that are delirium inducing - No underlying signs of infection --> Baseline WBC, Normal UA, CXR no acute cardiopulmonary findings, Head CT shows no intracranial abnormalities - Repeat morning BMP - Urine Culture ordered + Received dose of Rocephin in the ED due to initial concern over UTI although UA is clean - Admit to Med/Surg 2) Systolic CHF/ Afib/ Pacemaker/ CAD - Holding morning dose of Lasix and Spironolactone due to concern of dehydration - Continue home Coreg and Irbesartan - Resume home Coumadin --> Current INR of 1.1 because patient was not taking home meds --> Bridge with Lovenox 1mg/kg BID at this time - EKG: Ventricular Paced Rhythm - No shortness of breath and current LE swelling baseline 3) Diabetes Mellitus - Holding home Metformin - Insulin Sliding Scale 4) GERD - Continue home Protonix 40mg PO Daily 5) HLD - Continue home Lipitor 20mg PO Daily 6) DVT Prophylaxis - Bride with Lovenox due to subtherapeutic INR - Resume home Coumadin dose on 2mg daily 7) Code Status - Full Resuscitation Resident Physician Supervision Note: I was present with Dr. Lechuga during the history and exam. I discussed the case with the resident and agree with the findings and plan as documented in the note. Any exceptions or clarifications are listed here: 87 y/o F Hx CAD, HTN, AF, CHF, DM - presents with a 2 week history of worsening confusion. Pt had suffered a fall two weeks prior and has exhibited functional decline since that time. Has not been compliant with her medications. OE AAO x 1 S1,2 R CTA NT, ND + BL edema P: There is no clear evidence of infection - AMS may be gradual and due to cognitive impairment which has worsened due to schedule disruption following her fall. She does exhibit a degree of dehydration. We will provide IVF and reassess AM - if there is no improvement we may need to consult mental health to confirm impairment and consider transfer to long-term care Her diuretics are held and she will need volume status monitoring while receiving IVF due to her CHF history. Documented By: Lazaro Vickers Resuscitation Status FULL RESUSCITATION VTE Prophylaxis VTE Risk Assessment Done? Y/N: Yes Risk Level: Moderate Given or contraindicated: Warfarin (Coumadin) Resident Tracking Resident Involvement: Resident Care Provided Care Provided: Adult Hospital Medicine
[2017-07-16] MEDS: ENOXAPARIN 100 MG/1ML SYR SQ SCH ×2 (05:09→17:06)
[2017-07-16 06:10] LABS: BASO % 0.4 %; BASO ABS # 0.04 K/uL (0-0.2); EOS % 2.7 %; EOS ABS # 0.29 K/uL (0-0.5); HEMATOCRIT 39.9 % (37-47); HEMOGLOBIN 13.2 g/dL (12.0-16.0); IG# 0.05 K/uL (0.00-0.02); LYMPH ABS # 2.48 K/uL (1.2-3.4); MEAN CELL VOLUME 97.6 fL (80-100); MEAN CORPUSCULAR HEMOGLOBIN 32.3 pg (25-34); MEAN CORPUSCULAR HGB CONC 33.1 g/dl (32-36); MEAN PLATELET VOLUME 9.7 fL (7.4-10.4); MONO % 9.9 %; MONO ABS # 1.07 K/uL (0.11-0.59); NEUT % 63.5 %; NEUT ABS # 6.87 K/uL (1.4-6.5); PLATELET COUNT 209 K/uL (130-400); RED CELL DISTRIBUTION WIDTH CV 13.4 % (11.5-14.5); RED CELL DISTRIBUTION WIDTH SD 47.8 fL (36.4-46.3)
[2017-07-16] MEDS ORDERED: GLUCOSE 40% GEL 15 GM TUBE PO PRN (06:30)
[2017-07-16] MEDS ORDERED: GLUCAGON FOR INJ 1 MG VIAL SQ PRN (06:30)
[2017-07-16] MEDS ORDERED: GLUCOSE 10 TABS/TUBE PO PRN (06:30)
[2017-07-16] MEDS ORDERED: DEXTROSE 50% 50 ML SYR IV PRN (06:30)
[2017-07-16 06:47] LABS: CALCIUM 8.7 mg/dl (8.5-10.1); CREATININE 1.29 mg/dl (0.60-1.20); POTASSIUM 3.6 mmol/L (3.5-5.1)
[2017-07-16] MEDS: INSULIN ASPART 100 UNITS/ML 3 ML PEN SC SCH ×3 (07:57→17:10)
[2017-07-16] MEDS ORDERED: PNEUMOCOCCAL ADMINISTRATION CHARGE ONE (08:00)
[2017-07-16] MEDS ORDERED: PNEUMOCOCCAL POLYSACCHARIDES 25 MCG/0.5 ML VIAL/SYR IM. ONE (08:00)
[2017-07-16] MEDS ORDERED: CHOLECALCIFEROL 1000 INTER.UNIT TAB PO SCH (09:00)
[2017-07-16] MEDS ORDERED: CARVEDILOL 3.125 MG TAB PO SCH (09:00)
[2017-07-16] MEDS ORDERED: PANTOprazole SOD 40 MG TAB PO SCH (09:00)
[2017-07-16] MEDS ORDERED: ATORVASTATIN 20 MG TAB PO SCH (09:00)
[2017-07-16] MEDS ORDERED: THIAMINE HCL 100 MG TAB PO SCH (09:00)
[2017-07-16] MEDS ORDERED: FUROSEMIDE 40 MG TAB PO SCH (09:00)
[2017-07-16] MEDS ORDERED: ASPIRIN 81 MG ECTAB PO SCH (09:00)
[2017-07-16] MEDS ORDERED: IRBESARTAN 75 MG TAB PO SCH (09:00)
[2017-07-16] MEDS ORDERED: SPIRONOLACTONE 25 MG TAB PO SCH (09:00)
--- NOTE | 2017-07-16 09:08 | Family Medicine Progress Note ---
Progress Note Date of Service Jul 16, 2017. Subjective Pt evaluation today including: conversation w/ patient, physical exam, chart review, lab review Pain: denies any discomfort PO Intake: tolerating Voiding: no voiding problems This AM reports urinating without any trouble otherwise denies any discomfort Constitutional: No fever, No chills Respiratory: No shortness of breath Cardiovascular: No chest pain Abdomen: No pain, No nausea, No vomiting Female : No dysuria Medications Current Inpatient Medications Medications (Trade) Dose Ordered Sig/Kermit Route Start Time Stop Time Status Last Admin Dose Admin Acetaminophen (Tylenol Tab) 650 mg Q4H PRN PO 07/16/17 00:15 08/15/17 00:14 Magnesium Hydroxide (Milk Of Magnesia Susp) 30 ml Q6H PRN PO 07/16/17 00:15 08/15/17 00:14 Polyethylene (Miralax Powder Packet) 17 gm DAILY PRN PO 07/16/17 00:15 08/15/17 00:14 Ondansetron HCl (Zofran Inj) 4 mg Q6H PRN IV 07/16/17 00:15 08/15/17 00:14 Sodium Chloride 1,000 ml @ 60 mls/hr [id number] IV 07/16/17 00:15 08/15/17 00:14 07/16/17 05:08 60 MLS/HR Albuterol (Ventolin Hfa Inhaler) 2 puffs UD PRN INH 07/16/17 00:15 08/15/17 00:14 Aspirin (Ecotrin Tab) 81 mg DAILY PO 07/16/17 09:00 08/15/17 08:59 07/16/17 07:52 81 MG Atorvastatin Calcium (Lipitor Tab) 20 mg DAILY PO 07/16/17 09:00 08/15/17 08:59 07/16/17 07:52 20 MG Carvedilol (Coreg Tab) 3.125 mg BID PO 07/16/17 09:00 08/15/17 08:59 07/16/17 07:52 3.125 MG Cholecalciferol (Vitamin D Tab) 1,000 inter.unit DAILY PO 07/16/17 09:00 08/15/17 08:59 07/16/17 07:52 1,000 INTER.UNIT Folic Acid (Folvite Tab) 1 mg DAILY PO 07/16/17 09:00 08/15/17 08:59 07/16/17 07:52 1 MG Irbesartan (Avapro Tab) 75 mg DAILY PO 07/16/17 09:00 08/15/17 08:59 07/16/17 07:52 75 MG Pantoprazole Sodium (Protonix Tab) 40 mg DAILY PO 07/16/17 09:00 08/15/17 08:59 07/16/17 07:52 40 MG Thiamine HCl (Vitamin B-1 Tab) 100 mg DAILY PO 07/16/17 09:00 08/15/17 08:59 07/16/17 07:52 100 MG Warfarin Sodium (Coumadin Tab) 2 mg DAILY@1600 PO 07/16/17 16:00 08/15/17 15:59 Insulin Aspart (novoLOG ASPART) SLIDING SCALE G... ACHS SC 07/16/17 06:30 08/15/17 06:59 07/16/17 07:57 6 UNITS Miscellaneous (Iv Fluids Completed) 1 ea PRN PRN N/A 07/16/17 01:00 07/16/18 00:59 Enoxaparin Sodium (Lovenox Inj) 90 mg Q12H SQ 07/16/17 06:00 08/15/17 05:59 07/16/17 05:09 90 MG Glucose (Glucose 40% Gel) 15-30 GRAMS 15 GRAMS... UD PRN PO 07/16/17 06:30 08/15/17 06:29 Glucose (Glucose Chew Tab) 4-8 Tablets 4 Tabl... UD PRN PO 07/16/17 06:30 08/15/17 06:29 Dextrose (Dextrose 50% 50ML Syringe) 25-50ML OF 50% DW IV FOR... UD PRN IV 07/16/17 06:30 08/15/17 06:29 Glucagon (Glucagon Inj) 1 mg UD PRN SQ 07/16/17 06:30 08/15/17 06:29 Objective Vital Signs Date Time Temp Pulse Resp B/P (MAP) Pulse Ox O2 Delivery O2 Flow Rate FiO2 07/16/17 08:18 36.7 70 18 159/75 (103) 96 07/16/17 01:40 36.5 83 22 155/75 (101) 97 Room Air 07/16/17 01:09 83 20 140/80 92 Room Air 07/16/17 00:58 Room Air 07/15/17 23:19 71 20 150/94 93 Room Air 07/15/17 21:57 75 07/15/17 21:32 70 18 159/92 95 Room Air 07/15/17 20:09 72 18 146/79 95 Room Air 07/15/17 19:19 99 Room Air 07/15/17 19:11 99 Room Air 07/15/17 19:06 71 07/15/17 17:39 36.4 87 16 151/75 95 Room Air Physical Exam General Appearance: no apparent distress Eyes: normal inspection, sclerae normal Neck: supple Respiratory/Chest: lungs clear, normal breath sounds Cardiovascular: regular rate, rhythm, no JVD Abdomen: normal bowel sounds, soft, + tenderness (tender in suprapubic region/ over old incision cites ) Extremities: non-tender, + pertinent finding (1+ pretibial and pedal edema) Neurologic/Psychiatric: alert, + pertinent finding (oriented to person, place and monthh only) Laboratory Results 07/16/17 05:32 Red Blood Count 4.09, Mean Corpuscular Volume 97.6, Mean Corpuscular Hemoglobin 32.3, Mean Corpuscular Hemoglobin Concent 33.1, Mean Platelet Volume 9.7, Neutrophils (%) (Auto) 63.5, Lymphocytes (%) (Auto) 23.0, Monocytes (%) (Auto) 9.9, Eosinophils (%) (Auto) 2.7, Basophils (%) (Auto) 0.4, Neutrophils # (Auto) 6.87, Lymphocytes # (Auto) 2.48, Monocytes # (Auto) 1.07, Eosinophils # (Auto) 0.29, Basophils # (Auto) 0.04 07/16/17 05:32 Test 07/15/17 19:05 07/15/17 19:20 07/15/17 22:50 07/16/17 05:32 Prothrombin Time 11.8 SECONDS (9.0-12.0) Prothromb Time International Ratio 1.1 (0.9-1.1) Total Bilirubin 0.7 mg/dl (0.2-1) Direct Bilirubin 0.2 mg/dl (0-0.2) Aspartate Amino Transf (AST/SGOT) 18 U/L (15-37) Alanine Aminotransferase (ALT/SGPT) 33 U/L (12-78) Alkaline Phosphatase 78 U/L (45-117) Total Creatine Kinase 52 U/L (26-192) Creatine Kinase MB 0.9 ng/ml (0.5-3.6) Creatine Kinase MB Ratio 1.7 (0-3.0) Troponin I 0.016 ng/ml (0-0.045) Total Protein 7.9 gm/dl (6.4-8.2) Albumin 4.0 gm/dl (3.4-5.0) Thyroid Stimulating Hormone (TSH) 2.680 uIu/ml (0.300-4.500) Influenza Type A (RT-PCR) Neg for Influ A (NEG) Influenza Type A Antigen Neg for Influ A (NEG) Influenza Type B Antigen Neg for Influ B (NEG) Influenza Type B (RT-PCR) Neg for Influ B (NEG) Urine Color YELLOW Urine Appearance CLEAR (CLEAR) Urine pH 5.0 (4.5-7.5) Urine Specific [place] 1.021 (1.000-1.030) Urine Protein NEG (NEG) Urine Glucose (UA) NEG (NEG) Urine Ketones NEG (NEG) Urine Occult Blood NEG (NEG) Urine Nitrite NEG (NEG) Urine Bilirubin NEG (NEG) Urine Urobilinogen NEG (NEG) Urine Leukocyte Esterase NEG (NEG) White Blood Count 10.80 K/uL (4.8-10.8) Red Blood Count 4.09 M/uL (4.2-5.4) Hemoglobin 13.2 g/dL (12.0-16.0) Hematocrit 39.9 % (37-47) Mean Corpuscular Volume 97.6 fL (80-100) Mean Corpuscular Hemoglobin 32.3 pg (25-34) Mean Corpuscular Hemoglobin Concent 33.1 g/dl (32-36) Platelet Count 209 K/uL (130-400) Mean Platelet Volume 9.7 fL (7.4-10.4) Neutrophils (%) (Auto) 63.5 % Lymphocytes (%) (Auto) 23.0 % Monocytes (%) (Auto) 9.9 % Eosinophils (%) (Auto) 2.7 % Basophils (%) (Auto) 0.4 % Neutrophils # (Auto) 6.87 K/uL (1.4-6.5) Lymphocytes # (Auto) 2.48 K/uL (1.2-3.4) Monocytes # (Auto) 1.07 K/uL (0.11-0.59) Eosinophils # (Auto) 0.29 K/uL (0-0.5) Basophils # (Auto) 0.04 K/uL (0-0.2) RDW Standard Deviation 47.8 fL (36.4-46.3) RDW Coefficient of Variation 13.4 % (11.5-14.5) Immature Granulocyte % (Auto) 0.5 % Immature Granulocyte # (Auto) 0.05 K/uL (0.00-0.02) Anion Gap 8.0 mmol/L (3-11) Est Creatinine Clear Calc Drug Dose 33.5 ml/min Estimated GFR () 42.8 Estimated GFR (Non- 36.9 BUN/Creatinine Ratio 17.8 (10-20) Calcium Level 8.7 mg/dl (8.5-10.1) Test 07/16/17 07:55 Bedside Glucose 225 mg/dl (70-90) Assessment and Plan Patient is an 87 year old female [facility] resident with a past medical history of CAD, HTN, Afib, HLD, CHF, and DM that presents with a 2 week history of worsening confusion. 1) Altered mental status - secondary to dehydration and medication error - BUN/ Cr improved to 23/1.29 - Rehydrate with Normal Saline at 60 ml/hr - Resume home medications except Lasix and Spironolactone - No home medications at this time identified or held that are delirium inducing - No underlying signs of infection --> Baseline WBC, Normal UA, CXR no acute cardiopulmonary findings, Head CT shows no intracranial abnormalities - Urine Culture ordered + Received dose of Rocephin in the ED due to initial concern over UTI although UA is clean 2) Systolic CHF/ Afib/ Pacemaker/ CAD - Holding morning dose of Lasix and Spironolactone due to concern of dehydration - Continue home Coreg and Irbesartan - Resume home Coumadin --> Current INR of 1.1 because patient was not taking home meds --> Bridge with Lovenox 1mg/kg BID at this time - EKG: Ventricular Paced Rhythm - No shortness of breath and current LE swelling baseline 3) Diabetes Mellitus - Holding home Metformin - Insulin Sliding Scale 4) GERD - Continue home Protonix 40mg PO Daily 5) HLD - Continue home Lipitor 20mg PO Daily 6) DVT Prophylaxis - Bride with Lovenox due to subtherapeutic INR - Resume home Coumadin dose on 2mg daily 7) Code Status - Full Resuscitation History Resident Physician Supervision Note: I was present with Dr. Damon during the history and exam. I discussed the case with the resident and agree with the findings and plan as documented in the note. Any exceptions or clarifications are listed here. Pt seen following ambulation with PT in company of daughter. At present, patient remains pleasantly confused with short term memory difficulty. Per the daughter, this is the patient's baseline. She has some difficulty with ADLs and had been transitioning to assisted living at time of admission. The daughter reports poor medication compliance 2/2 forgetfulness, which has been the normal. General Appearance: WD/WN, no apparent distress Eye Exam: bilateral eye PERRL, bilateral eye EOMI Respiratory: chest non-tender, lungs clear, normal breath sounds, no respiratory distress Cardiovascular: normal peripheral pulses, regular rate, rhythm, no murmur Gastrointestinal: normal bowel sounds, non tender, soft, no organomegaly Neurologic/Psychiatric: elevator starter II-XII nml as tested, no motor/sensory deficits, alert, normal mood/affect Skin Characteristics: normal color, warm/dry Assessment/Plan 87 y/o female h/o CAD, HTN, Afib, HLD, CHF, and DM presents with confusion Altered mental status - at baseline, concerning for underlying dementia w/ acute delirium v. dehydration Systolic CHF - restart lasix and spironolactone after IV hydration Atrial fibrillation - bridge w/ lovenox to warfarin CAD w/ pacemaker placement - continue maintenance medications DMII - restart metformin GERD - continue protonix Hyperlipidemia - continue statin therapy After discussion with daughter and patient, feeling is that she has returned to baseline with negative work up at [facility] and will return to assisted living with increased support and education regarding delirium in new settings and stressors. Will follow up with PCP on Wednesday for re-evaluation and recheck of BMP.
[2017-07-16] MEDS ORDERED: FUROSEMIDE 40 MG TAB PO ONE ×2 (11:52→12:00)
[2017-07-16] MEDS: ALBUT/IPRATROP 3MG/0.5MG NEB 3 ML VIAL INH SCH ×2 (12:43→15:29)
[2017-07-16] MEDS ORDERED: WARFARIN SOD 2 MG TAB PO SCH (16:00)
--- NOTE | 2017-07-16 16:23 | Discharge Instructions ---
Discharge Instructions Date of Service Jul 16, 2017. Admission Reason for Admission: Altered Mental Status Discharge Discharge Diagnosis / Problem: altered mental status Discharge Goals Goal(s): Decrease discomfort, Diagnostic testing, Therapeutic intervention Activity Recommendations Activity Limitations: resume your previous activity . Instructions / Follow-Up Instructions / Follow-Up Ms. Emeli vines were admitted for worsening confusion and dehydration since your fall 2 weeks ago. We did a thorough work up to make sure you were not having a head bleed, infection or any fractures from your fall. We also gave you some fluids. - Please continue taking your home medications as prescribed prior to your admission - Please continue taking your Warfarin/Coumadin - Please follow up with your primary care doctor on Wednesday to have your Coumadin labs checked and to adjust your medication as needed Current Hospital Diet Patient's current hospital diet: Diabetes Type 2 Diet, AHA Diet (Heart Healthy) Discharge Diet Recommended Diet: AHA Diet (Heart Healthy) Pending Studies Studies pending at discharge: no Laboratory Results Hemoglobin A1c Test 05/25/17 06:10 Range/Units Estimated Average Glucose 177 mg/dl Hemoglobin A1c 7.8 H 4.5-5.6 % Lipid Panel Test 05/25/17 06:10 Range/Units Triglycerides Level 80 0-150 mg/dl Cholesterol Level 108 0-200 mg/dl HDL Cholesterol 39 mg/dl Cholesterol/HDL Ratio 2.8 LDL Cholesterol, Calculated 53 mg/dl Medical Emergencies . Who to Call and When: Medical Emergencies: If at any time you feel your situation is an emergency, please call 911 immediately. . Non-Emergent Contact Non-Emergency issues call your: Primary Care Provider . . "Provider Documentation" section prepared by Felicitas Damon. . VTE Core Measure Inpt VTE Proph given/why not?: Enoxaparin (Lovenox)SQ, Warfarin (Coumadin)
[2017-07-16] MEDS ORDERED: ENOX100I SQ (16:37)
--- NOTE | 2017-07-16 19:31 | Discharge Summary ---
Discharge Summary Date of Service Jul 16, 2017. Discharge Summary Admission Date: Jul 16, 2017 at 00:15 Discharge Date: Jul 16, 2017 Discharge Disposition: snf facility Principal Diagnosis: metabolic encephalopathy Problems/Secondary Diagnoses: Systolic CHF Afib with Pacemaker CAD Hyperlipidemia DM GERD Immunizations: Have You Had Influenza Vaccine: Yes Influenza Vaccine Date: May 24, 2011 History of Tetanus Vaccine?: yes in last 5-6 years she stated History of Pneumococcal: yes pt had in past several yrs ago History of Hepatitis B Vaccine: Unknown Consultations: none Medication Reconciliation New Medications: Enoxaparin (Lovenox) 100 Mg/Ml Inj 1 ML SQ DAILY for 5 Days, #5 ML Continued Medications: Albuterol Hfa (Ventolin Hfa) 200 Puffs/47956 Mcg Aers 2 PUFFS INH UD PRN for cough/wheeze, #1 INHALER Aspirin (Aspirin Dr) 81 Mg Tab 81 MG PO DAILY Atorvastatin (Lipitor) 20 Mg Tab 20 MG PO DAILY, TAB Capsaicin (Capsaicin) 0.025 % Cre 1 APPLN TOP BID PRN for neuropathy apply to both feet avoid broken or irritated skin Carvedilol (Coreg) 3.125 Mg Tab 3.125 MG PO BID, TAB Cholecalciferol (Vitamin D3) 1,000 Unit Tab 1000 INTER.UNIT PO DAILY, TAB Cholecalciferol (Vitamin D3) 1,000 Unit Tab 1 TAB PO DAILY, TAB 3 Refills Folic Acid (Folvite) 1 Mg Tab 1 MG PO DAILY, TAB Furosemide (Lasix) 40 Mg Tab 40 MG PO DAILY, TAB Irbesartan (Irbesartan) 75 Mg Tab 75 MG PO DAILY Metformin Ext Rel (Glucophage Ext Rel) 750 Mg Tab 750 MG PO QPM, TAB Pantoprazole (Protonix) 40 Mg Tab 40 MG PO DAILY, #30 TAB Psyllium (Reguloid) 68 % Pow 1 TBS PO QAM Spironolactone (Spironolactone) 25 Mg Tab 25 MG PO DAILY Thiamine Hcl (Vitamin B-1) 100 Mg Tab 100 MG PO DAILY, TAB Warfarin Sodium (Coumadin) 2 Mg Tab 1 TAB PO DAILY, TAB 3 Refills Discharge Exam Constitutional: No fever, No chills Respiratory: No shortness of breath Cardiovascular: No chest pain Abdomen: No pain, No nausea, No vomiting Female : No dysuria General Appearance: no apparent distress Eyes: normal inspection, sclerae normal Neck: supple Respiratory/Chest: lungs clear, normal breath sounds Cardiovascular: regular rate, rhythm, no JVD Abdomen: normal bowel sounds, soft, + tenderness (tender in suprapubic region/ over old incision cites ) Extremities: non-tender, + pertinent finding (1+ pretibial and pedal edema) Neurologic/Psychiatric: alert, + pertinent finding (oriented to person, place and monthh only) Hospital Course Patient is an 87 year old female [facility] resident with a past medical history of CAD, HTN, Afib, HLD, CHF, and DM that presents with a 2 week history of worsening confusion in the setting of a fall 2 weeks ago Metabolic encephalopathy - secondary to fall/transitions in life vs. dehydration vs. not taking medications for 4 days - BUN/ Cr improved to 23/1.29 - Rehydrated with Normal Saline at 60 ml/hr - Resume home medications - No home medications identified as delirium inducing - No underlying signs of infection --> Baseline WBC, Normal UA, CXR no acute cardiopulmonary findings, Head CT shows no intracranial abnormalities - Received dose of Rocephin in the ED Systolic CHF/ Afib/ Pacemaker/ CAD - No shortness of breath and current LE swelling baseline - Continue home Coreg and Irbesartan, lasix and spironolactone - Resumed home Coumadin - INR of 1.1 as pt not taking home meds and bridged with Lovenox 1mg/kg BID - discharged on home coumadin dosage and Lovenox 100mg SQ daily x 5 days - instructed to take Lovenox until Wednesday - See doctor on Wednesday to get INR check and coumadin dosage adjustment as needed - EKG: Ventricular Paced Rhythm - Afib Diabetes Mellitus - Held home Metformin - resumed on discharge - Insulin Sliding Scale GERD - Continued home Protonix 40mg PO Daily HLD - Continued home Lipitor 20mg PO Daily DVT Prophylaxis - Bridged with Lovenox due to subtherapeutic INR - Resume home Coumadin dose on 2mg daily Code Status - Full Resuscitation Total Time Spent: Less than 30 minutes This includes examination of the patient, discharge planning, medication reconciliation, and communication with other providers. Discharge Instructions Please refer to the electronic Patient Visit Report (Discharge Instructions) for additional information. Additional Copies To Ector West M.D. History Resident Physician Supervision Note: I was present with Dr. Damon during the history and exam. I discussed the case with the resident and agree with the findings and plan as documented in the note. Any exceptions or clarifications are listed here. For full attending history and physical, please see note from day of discharge. Assessment/Plan 87 y/o female h/o CAD, HTN, Afib, HLD, CHF, and DM presents with confusion Altered mental status - at baseline, concerning for gradually progressive underlying dementia w/ acute delirium v. dehydration Systolic CHF - resume lasix and spironolactone after IV hydration, continue irbesartan, coreg Atrial fibrillation - bridge w/ lovenox to warfarin, follow up for labs on Wednesday CAD w/ pacemaker placement - continue maintenance medications DMII - restart metformin GERD - continue protonix Hyperlipidemia - continue statin therapy After discussion with daughter and patient, feeling is that she has returned to baseline with negative work up at [facility] and will return to assisted living with increased support and education regarding delirium in new settings and stressors. Will follow up with PCP on Wednesday for re-evaluation and recheck of BMP.
[2017-07-17] MEDS ORDERED: FUROSEMIDE 40 MG TAB PO SCH (09:00)
[2017-07-17] MEDS ORDERED: SPIRONOLACTONE 25 MG TAB PO SCH (09:00)
== END 2017-07-16 17:59 | disposition home or self-care (01) ==
LOC: C.EDB 17:16 → C.MS2W 07-16 00:15 → ENRESERV 07-16 00:56
PROVIDERS: ADMIT Student in an Organized Health Care Education/Training Program; ATTEND Internal Medicine
DX: G93.41 Metabolic encephalopathy (principal); I50.20 Unspecified systolic (congestive) heart failure; I48.91 Unspecified atrial fibrillation; Z95.0 Presence of cardiac pacemaker; I25.10 Atherosclerotic heart disease of native coronary artery without angina pectoris; E78.5 Hyperlipidemia, unspecified; E11.9 Type 2 diabetes mellitus without complications; K21.9 Gastro-esophageal reflux disease without esophagitis; Z88.0 Allergy status to penicillin; Z79.82 Long term (current) use of aspirin; Z79.01 Long term (current) use of anticoagulants; Z79.899 Other long term (current) drug therapy

== ENCOUNTER → 2017-07-15 | Outpatient (CLI) | payer OTHER, MEDICARE ==
[2017-07-15 14:02] LABS: ALT/SGPT 33 U/L (12-78); AST/SGOT 16 U/L (15-37); BLOOD UREA NITROGEN 22 mg/dl (7-18); CALCIUM 10.1 mg/dl (8.5-10.1); CARBON DIOXIDE 24 mmol/L (21-32); CREATININE 1.59 mg/dl (0.60-1.20); GLUCOSE 221 mg/dl (70-99); POTASSIUM 4.4 mmol/L (3.5-5.1); SODIUM 139 mmol/L (136-145)
[2017-07-15 14:12] LABS: ALKALINE PHOSPHATASE 78 U/L (45-117); TOTAL PROTEIN 7.7 gm/dl (6.4-8.2)
[2017-07-15 16:56] LABS: HEMATOCRIT 44.3 % (37-47); HEMOGLOBIN 14.7 g/dL (12.0-16.0); MEAN CELL VOLUME 98.7 fL (80-100); MEAN CORPUSCULAR HEMOGLOBIN 32.7 pg (25-34); MEAN CORPUSCULAR HGB CONC 33.2 g/dl (32-36); MEAN PLATELET VOLUME 9.9 fL (7.4-10.4); PLATELET COUNT 265 K/uL (130-400); RED CELL DISTRIBUTION WIDTH CV 13.4 % (11.5-14.5); RED CELL DISTRIBUTION WIDTH SD 47.6 fL (36.4-46.3); WHITE BLOOD COUNT 11.95 K/uL (4.8-10.8)
[2017-07-15 17:08] LABS: INR 1.1 (0.9-1.1)
== END | disposition home or self-care (01) ==
LOC: C.LABFOXDH 13:30
PROVIDERS: ATTEND Internal Medicine
DX: R41.2 Retrograde amnesia (principal)

== ENCOUNTER → 2017-07-19 | Outpatient (CLI) | payer OTHER, MEDICARE ==
[~2017-07-19] MED LIST changes: -ALBU1AER9 INH; +CAPS0.022 TOP; +ENOX100I SQ; +FOLI1TAB8 PO; -GABA-112 PO; -LOPELIQ6 PO; -METF-382 PO; +METFTAB2 PO; +PANT40TA PO; -PRT/20 PO; -PSYL55.43 PO; +THIA100T11 PO; +VNTHFA/IN INH; +[UNRECOGNIZED DRUG - CODE] PO
[2017-07-19 09:58] LABS: INR 1.3 (0.9-1.1)
== END | disposition home or self-care (01) ==
LOC: C.LABFOXDH 09:27
PROVIDERS: ATTEND Nurse Practitioner
DX: I48.91 Unspecified atrial fibrillation (principal)

== ENCOUNTER → 2017-07-21 | Outpatient (CLI) | payer OTHER, MEDICARE ==
[2017-07-21 09:27] LABS: BLOOD UREA NITROGEN 27 mg/dl (7-18); CALCIUM 9.3 mg/dl (8.5-10.1); CARBON DIOXIDE 24 mmol/L (21-32); CREATININE 1.19 mg/dl (0.60-1.20); GLUCOSE 170 mg/dl (70-99); SODIUM 136 mmol/L (136-145)
[2017-07-21 09:28] LABS: INR 1.9 (0.9-1.1)
== END | disposition home or self-care (01) ==
LOC: C.LABFOXDH 08:59
PROVIDERS: ATTEND Internal Medicine
DX: I48.91 Unspecified atrial fibrillation (principal)

== ENCOUNTER → 2017-07-22 | Outpatient (CLI) | payer OTHER, MEDICARE ==
[2017-07-22 08:30] LABS: INR 1.9 (0.9-1.1)
== END ==
LOC: C.LABFOXDH 07:56
PROVIDERS: ATTEND Internal Medicine Hospice and Palliative Medicine
DX: I48.91 Unspecified atrial fibrillation (principal)

== ENCOUNTER → 2017-07-26 | Outpatient (CLI) | payer OTHER, MEDICARE ==
[2017-07-26 09:30] LABS: INR 3.7 (0.9-1.1)
== END | disposition home or self-care (01) ==
LOC: C.LABFOXDH 08:17
PROVIDERS: ATTEND Internal Medicine
DX: R79.1 Abnormal coagulation profile (principal)

== ENCOUNTER → 2017-07-29 | Outpatient (CLI) | payer OTHER, MEDICARE ==
[2017-07-29 08:45] LABS: INR 2.7 (0.9-1.1)
== END | disposition home or self-care (01) ==
LOC: C.LABFOXDH 08:13
PROVIDERS: ATTEND Internal Medicine
DX: R79.1 Abnormal coagulation profile (principal)

== ENCOUNTER → 2017-08-02 | Outpatient (CLI) | payer OTHER, MEDICARE ==
[2017-08-02 08:56] LABS: INR 3.5 (0.9-1.1)
--- NOTE | 2017-08-13 10:32 | CODING QUERY NO DIAGNOSIS ---
: 1929 Valid Physician Order Needed A valid physician order must be submitted in order to properly bill for the service(s) provided, including date of service(s), valid diagnosis, and physician signature. If these tests are done on a recurring basis the original physician order must be submitted in order to code and bill for the service(s) provided. Please fax us the original, signed physician order so that we may expedite billing to [phone] DOS 08/02/17 * PT/INR Thank you Alize Dinh [facility] Information Management
== END | disposition home or self-care (01) ==
LOC: C.LABFOXDH 08:18
PROVIDERS: ATTEND Internal Medicine
DX: Z79.01 Long term (current) use of anticoagulants (principal); R79.1 Abnormal coagulation profile

== ENCOUNTER → 2017-08-09 | Outpatient (CLI) | payer OTHER, MEDICARE ==
[2017-08-09 08:49] LABS: INR 3.7 (0.9-1.1)
== END | disposition home or self-care (01) ==
LOC: C.LABFOXDH 07:50
PROVIDERS: ATTEND Internal Medicine
DX: I48.91 Unspecified atrial fibrillation (principal)

== ENCOUNTER → 2017-08-12 | Outpatient (CLI) | payer OTHER, MEDICARE | END | disposition home or self-care (01) | LOC: C.LABFOXDH 07:44 | PROVIDERS: ATTEND Internal Medicine | DX: R79.1 Abnormal coagulation profile (principal) ==

== ENCOUNTER → 2017-08-19 | Outpatient (CLI) | payer OTHER, MEDICARE | END | disposition home or self-care (01) | LOC: C.LABFOXDH 07:58 | PROVIDERS: ATTEND Internal Medicine | DX: R79.1 Abnormal coagulation profile (principal) ==

== ENCOUNTER → 2017-09-02 | Outpatient (CLI) | payer OTHER, MEDICARE ==
[2017-09-02 08:30] LABS: INR 2.3 (0.9-1.1)
== END | disposition home or self-care (01) ==
LOC: C.LABFOXDH 07:50
PROVIDERS: ATTEND Internal Medicine
DX: R79.1 Abnormal coagulation profile (principal)

== ENCOUNTER → 2017-09-23 | Outpatient (CLI) | payer OTHER, MEDICARE ==
[2017-09-23 09:15] LABS: INR 2.3 (0.9-1.1)
== END | disposition home or self-care (01) ==
LOC: C.LABFOXDH 08:46
PROVIDERS: ATTEND Internal Medicine
DX: R79.1 Abnormal coagulation profile (principal)

== ENCOUNTER → 2017-10-07 | Outpatient (CLI) | payer OTHER, MEDICARE ==
--- NOTE | 2017-10-08 07:22 | MAMMOGRAPHY REPORT ---
BILATERAL DIGITAL DIAGNOSTIC MAMMOGRAM TOMOSYNTHESIS WITH CAD: 10/07/2017 CLINICAL HISTORY: Six-month follow-up of right breast mass. Due for annual mammography of the left b reast. The patient reports no palpable lumps or other complaints. TECHNIQUE: Breast tomosynthesis in addition to standard 2D mammography was performed. Current study was also evaluated with a Computer Aided Detection (CAD) system. Bilateral CC and MLO 2D and tomosyn thesis images were obtained. COMPARISON: Comparison is made to exams dated: 04/09/2017 mammogram, 10/01/2016 mammogram, 10/01/2016 u ltrasound, 09/23/2016 mammogram, 09/12/2015 mammogram, and 08/29/2014 mammogram - [facility] enter. BREAST COMPOSITION: There are scattered areas of fibroglandular density in both breasts. FINDINGS: Again noted are postsurgical changes in the right 12:00 breast from prior lumpectomy. An o hadley fat density 3 cm mass is again noted at the lumpectomy bed, consistent with benign fat necrosis. Within the fat density mass is a round circumscribed 9 mm mass, which is not significantly changed c ompared to the prior exam and given that it is located within the fat density mass it is probably david ign and likely represents fat necrosis. Coarse benign dystrophic calcifications are again noted at t he lumpectomy bed. The remainder of both breasts are stable compared to prior exams, without suspicious masses, calcific ations, or areas of architectural distortion noted. Other scattered bilateral benign-appearing calci fications are stable. Mild diffuse right breast skin thickening is stable. IMPRESSION: ACR-BI-RADS CATEGORY 3: PROBABLY BENIGN Circumscribed 9 mm mass within an area of fat necrosis at the lumpectomy bed in the right 12:00 breas t is not significantly changed and is probably benign and likely represents fat necrosis. Recommend bilateral diagnostic tomosynthesis mammograms in 12 months, to reevaluate the right breast mass and f or routine mammography of the left breast. The patient has been verbally notified of the results. Approximately 10% of breast cancers are not detected with mammography. A negative mammographic report should not delay biopsy if a clinically suggestive mass is present. Tessie Neumann M.D. /:10/07/2017 10:32:59 [employer] Station Manager: Luann GARCÍA(R)(M), [facility] letter sent: Follow Up Recommended 3 BI-RADS Code: ACR-BI-RADS Category 3: Probably Benign
== END | disposition home or self-care (01) ==
LOC: C.MAMM 09:50
PROVIDERS: ATTEND Internal Medicine
DX: N63.10 Unspecified lump in the right breast, unspecified quadrant (principal)

== ENCOUNTER → 2017-10-14 | Outpatient (CLI) | payer OTHER, MEDICARE ==
[2017-10-14 09:33] LABS: INR 1.6 (0.9-1.1)
== END ==
LOC: C.LABFOXDH 08:24
PROVIDERS: ATTEND Internal Medicine
DX: I48.91 Unspecified atrial fibrillation (principal)

== ENCOUNTER → 2017-10-28 | Outpatient (CLI) | payer OTHER, MEDICARE ==
[2017-10-28 09:44] LABS: INR 2.3 (0.9-1.1)
== END | disposition home or self-care (01) ==
LOC: C.LABFOXDH 09:20
PROVIDERS: ATTEND Internal Medicine Hospice and Palliative Medicine
DX: I48.91 Unspecified atrial fibrillation (principal)

== ENCOUNTER → 2017-11-02 | Outpatient (CLI) | payer OTHER, MEDICARE ==
[2017-11-02 08:46] LABS: BASO % 0.3 %; BASO ABS # 0.03 K/uL (0-0.2); EOS % 2.1 %; EOS ABS # 0.23 K/uL (0-0.5); HEMATOCRIT 40.2 % (37-47); HEMOGLOBIN 13.7 g/dL (12.0-16.0); IG# 0.05 K/uL (0.00-0.02); LYMPH % 24.4 %; LYMPH ABS # 2.67 K/uL (1.2-3.4); MEAN CELL VOLUME 93.1 fL (80-100); MEAN CORPUSCULAR HEMOGLOBIN 31.7 pg (25-34); MEAN CORPUSCULAR HGB CONC 34.1 g/dl (32-36); MEAN PLATELET VOLUME 10.1 fL (7.4-10.4); MONO % 10.3 %; MONO ABS # 1.13 K/uL (0.11-0.59); NEUT % 62.4 %; NEUT ABS # 6.84 K/uL (1.4-6.5); PLATELET COUNT 240 K/uL (130-400); RED CELL DISTRIBUTION WIDTH SD 44.6 fL (36.4-46.3); WHITE BLOOD COUNT 10.95 K/uL (4.8-10.8)
[2017-11-02 08:57] LABS: ALBUMIN 3.4 gm/dl (3.4-5.0); ALT/SGPT 23 U/L (12-78); AST/SGOT 14 U/L (15-37); BLOOD UREA NITROGEN 23 mg/dl (7-18); CALCIUM 9.5 mg/dl (8.5-10.1); CARBON DIOXIDE 27 mmol/L (21-32); GLUCOSE 157 mg/dl (70-99); POTASSIUM 4.1 mmol/L (3.5-5.1); SODIUM 136 mmol/L (136-145)
[2017-11-02 09:07] LABS: ALKALINE PHOSPHATASE 62 U/L (45-117); TOTAL PROTEIN 6.6 gm/dl (6.4-8.2)
[2017-11-02 09:10] LABS: HEMOGLOBIN A1C 8.5 % (4.5-5.6)
== END ==
LOC: C.LABFOXDH 08:24
PROVIDERS: ATTEND Internal Medicine
DX: R41.2 Retrograde amnesia (principal); E11.9 Type 2 diabetes mellitus without complications

== ENCOUNTER → 2017-11-11 | Outpatient (CLI) | payer OTHER, MEDICARE ==
[2017-11-11 08:56] LABS: INR 2.3 (0.9-1.1)
== END | disposition home or self-care (01) ==
LOC: C.LABFOXDH 08:16
PROVIDERS: ATTEND Internal Medicine Hospice and Palliative Medicine
DX: I48.91 Unspecified atrial fibrillation (principal)

== ENCOUNTER → 2017-12-02 | Outpatient (CLI) | payer OTHER, MEDICARE ==
[2017-12-02 08:15] LABS: INR 1.7 (0.9-1.1)
== END | disposition home or self-care (01) ==
LOC: C.LABFOXDH 07:46
PROVIDERS: ATTEND Internal Medicine
DX: I48.91 Unspecified atrial fibrillation (principal)

== ENCOUNTER → 2018-02-03 | Outpatient (CLI) | payer OTHER, MEDICARE ==
[~2018-02-03] MED LIST changes: +SPIR25TA6 PO; -SPR25 PO; +THIA100T10 PO; -THIA100T11 PO
[2018-02-03 10:04] LABS: INR 2.2 (0.9-1.1)
== END | disposition home or self-care (01) ==
LOC: C.LABFOXDH 08:45
PROVIDERS: ATTEND Internal Medicine
DX: I48.91 Unspecified atrial fibrillation (principal)

== ENCOUNTER → 2018-02-24 | Outpatient (CLI) | payer OTHER, MEDICARE ==
[2018-02-24 08:20] LABS: INR 1.8 (0.9-1.1)
== END | disposition home or self-care (01) ==
LOC: C.LABFOXDH 07:44
PROVIDERS: ATTEND Internal Medicine
DX: I48.91 Unspecified atrial fibrillation (principal)